=== PATIENT | male | born 1980 | race Two or more races ===

== ENCOUNTER 2025-03-17 17:53 | Inpatient (IN) | payer OTHER ==
[~2025-03-17] VITALS: Ht 180.3 cm; Wt 113.4 kg
--- NOTE | 2025-03-17 18:33 | ED.PDOC ---
History of Present Illness HPI Comments 44 y/o M, with a history of DM, HTN, and left-ankle surgery, presents with c/o left-foot pain, headache, and fatigue, today. Patient is deaf and a ASL speaker and endorses on recent onset of worsening symptoms after sustaining a scratch from a dog 1x week ago. Patient reports on pain worse when bearing weight and ambulating on foot. He any fever, chills, wound discharge, or other associated symptoms at this time. Time Seen by MD: 18:00 Reviewed Notes: Nurses Notes, Medications, Allergies Allergies: Coded Allergies: NO KNOWN ALLERGIES (Unverified , 03/17/25) Information Source: Patient Mode of Arrival: Ambulatory Severity: Moderate Timing: Weeks Duration: Since onset Prehospital treatment: None Past Medical History PAST MEDICAL HISTORY: DM, HTN Past Medical History (Other): deaf - ASL speaker Surgical History (Other): left-ankle surgery Family History Family History: Unknown Social History Smoker: Non-Smoker Alcohol: Denies ETOH Use Drugs: Denies Drug Use Lives In: Home Constitutional: reports: fatigue; denies: chills, diaphoresis, fever, malaise, sweats, weakness, others EENTM: denies: blurred vision, double vision, ear bleeding, ear discharge, ear drainage, ear pain, ear ringing, eye pain, eye redness, hearing loss, mouth pain, mouth swelling, nasal discharge, nose bleeding, nose congestion, nose pain, photophobia, tearing, throat pain, throat swelling, voice changes, others Respiratory: denies: cough, hemoptysis, orthopnea, SOB at rest, shortness of breath, SOB with excertion, stridor, wheezing, others Cardiovascular: denies: chest pain, dizzy spells, diaphoresis, Dyspnea on exertion, edema, irregular heart beat, left arm pain, lightheadedness, palpitations, PND, syncope, others Gastrointestinal: denies: abdomen distended, abdominal pain, blood streaked bowels, constipated, diarrhea, dysphagia, difficulty swallowing, hematemesis, melena, nausea, poor appetite, poor fluid intake, rectal bleeding, rectal pain, vomiting, others Genitourinary: denies: burning, dysuria, flank pain, frequency, hematuria, inco ntinence, penile discharge, penile sore, pain, testicle pain, testicle swelling, urgency, others Neurological: reports: headache; denies: dizziness, fainting, left sided numbness, left sided weakness, numbness, paresthesia, pre-existing deficit, right sided numbness, right sided weakness, seizure, speech problems, tingling, tremors, weakness, others Musculoskeletal: reports: others (left foot pain ); denies: back pain, gout, joint pain, joint swelling, muscle pain, muscle stiffness, neck pain Integumetry: denies: bruises, change in color, change in hair/nails, dryness, laceration, lesions, lumps, rash, wounds, others Allergic/Immunocompromised: denies: Difficulty Healing, Frequent Infections, Hives, Itching, others Hematologic/Lymphatic: denies: anemia, blood clots, easy bleeding, easy bruising, swollen glands, others Endocrine: denies: excessive hunger, excessive sweating, excessive thirst, excessive urination, flushing, intolerance to cold, intolerance to heat, unexplained weight gain, unexplained weight loss, others Psychiatric: denies: anxiety, bipolar disorder, depression, hopeless, panic disorder, schizophrenia, sleepless, suicidal, others All Other Systems: Reviewed and Negative Physical Exam General Appearance: Mild Distress HEENT: Normal ENT Inspection, Pharynx Normal, TMs Normal Neck: Full Range of Motion, Non-Tender, Normal, Normal Inspection Respiratory: Chest Non-Tender, Lungs Clear, No Accessory Muscle Use, No Respiratory Distress, Normal Breath Sounds Cardiovascular: No Edema, No JVD, No Murmur, No Gallop, Normal Peripheral Pulses, Regular Rate/Rhythm Breast Exam: Deferred Gastrointestinal: No Organomegaly, Non Tender, No Pulsatile Mass, Normal Bowel Sounds, Soft Genitalia: Deferred Pelvic: Deferred Rectal: Deferred Extremities: No calf tenderness, Normal capillary refill, Non-tender Musculoskeletal : Apperance: Normal Neurologic: Alert, cattle brander II-XII nml as Tested, No Motor Deficits, Normal Affect, Normal Mood, No Sensory Deficits Cerebellar Function: Normal Reflexes: Normal Skin: Dry, Normal Color, Warm, Other (Left ankle redness consistent with cellu litis) Lymphatic: No Adenopathy Was a procedure done? Was a procedure done?: No Differential Dx Considerations may include: cellulitis, dermatitis, sepsis, among others X-Ray, Labs, Meds, VS Vital Signs Date Time Temp Pulse Resp B/P (MAP) Pulse Ox O2 Delivery O2 Flow Rate FiO2 03/17/25 18:27 98.6 97 18 141/94 (110) 98 98.6 Lab Test 03/17/25 19:03 Range/Units White Blood Count 4.9 4.4-10.8 10^3/uL Red Blood Count 5.06 4.5-5.90 10^6/uL Hemoglobin 15.4 13.5-17.5 g/dL Hematocrit 43.7 41.0-53.0 % Mean Corpuscular Volume 86.3 80.0-100.0 fL Mean Corpuscular Hemoglobin 30.3 28.0-32.0 pg Mean Corpuscular Hemoglobin Concent 35.2 32.0-36.0 g/dL Red Cell Distribution Width 12.5 11.8-14.3 % Platelet Count 272 140-450 10^3/uL Mean Platelet Volume 8.2 6.9-10.8 fL Neutrophils (%) (Auto) 43.0 37.0-80.0 % Lymphocytes (%) (Auto) 50.5 H 10.0-50.0 % Monocytes (%) (Auto) 4.1 0.0-12.0 % Eosinophils (%) (Auto) 1.5 0.0-7.0 % Basophils (%) (Auto) 0.9 0.0-2.0 % Neutrophils # (Auto) 2.1 1.6-8.6 10 ^3/uL Lymphocytes # (Auto) 2.5 0.4-5.4 10 ^3/uL Monocytes # (Auto) 0.2 0-1.3 10 ^3/uL Eosinophils # (Auto) 0.1 0-0.8 10 ^3/uL Basophils # (Auto) 0 0-0.2 10 ^3/uL Nucleated Red Blood Cells 0.2 % Erythrocyte Sedimentation Rate 20 0-20 mm/hr Sodium Level 137 136-145 mmol/L Potassium Level 4.2 3.5-5.1 mmol/L Chloride Level 102 98-107 mmol/L Carbon Dioxide Level 29 20-31 mmol/L Anion Gap 6 5-15 Blood Urea Nitrogen 12 9-23 mg/dL Creatinine 0.95 0.700-1.30 mg/dL Glomerular Filtration Rate Calc 101 >90 mL/min BUN/Creatinine Ratio 12.6 10.0-20.0 Serum Glucose 153 H 74-106 mg/dL Calcium Level 10.1 8.7-10.4 mg/dL PROCEDURE(s): LFOT2 - L FOOT 2 VIEW XRAY VIEW XRAY Findings/Impression: 3 views of the left foot. There is no evidence of an acute fracture, dislocation, osseous erosions, blastic, or lytic lesions. No radiopaque foreign bodies. No joint effusion or superficial soft tissue abnormalities. IV Hep-Lock was established The patient was being given clindamycin IV piggyback The CBC and chemistry panel is within normal limits The patient is being admitted at this time Images Reviewed?: Images reviewed and evaluated by me Time of 1ST Reevaluation: 18:30 Reevaluation 1ST: Unchanged Patient Education/Counseling: Diagnosis, Treatment, Prognosis, Need For Follow Up Family Education/Counseling: No Family Present Departure 1 Departure Time of Disposition: 20:39 Impression: Primary Impression: Cellulitis of left ankle Disposition: ADMITTED INPATIENT Admit to: Med Surg Condition: Fair Critical Care Note Critical Care Time?: No Stability Stability form required: Yes Unstable for transfer: ED Physician Assesment (Clinical assesment) Heart Score Heart Score: Heart Score Response (Comments) Value History N/A 0 EKG N/A 0 Age N/A 0 Risk Factors N/A 0 Troponin N/A 0 Total 0 I personally scribed for HERNANDEZ HEIN MD ([email or web address]) on 03/17/25 at 18:33. Electronically submitted by Jeremy Abebe ([email or web address]). I personally scribed for HERNANDEZ HEIN MD ([email or web address]) on 03/17/25 at 19:45. Electronically submitted by Jeremy Abebe ([email or web address]). HERNANDEZ HEIN MD Mar 17, 2025 18:33
[2025-03-17 19:16] LABS: Basophils # (auto) 0 10 ^3/uL (0-0.2); Basophils % (auto) 0.9 % (0.0-2.0); Eosinophils # (auto) 0.1 10 ^3/uL (0-0.8); Eosinophils % (auto) 1.5 % (0.0-7.0); Hematocrit 43.7 % (41.0-53.0); Hemoglobin 15.4 g/dL (13.5-17.5); Lymphocytes # (auto) 2.5 10 ^3/uL (0.4-5.4); Lymphocytes % (auto) 50.5 % (10.0-50.0); Mean Corpuscular Hemoglobin 30.3 pg (28.0-32.0); Mean Corpuscular Hgb Conc. 35.2 g/dL (32.0-36.0); Mean Corpuscular Volume 86.3 fL (80.0-100.0); Monocytes # (auto) 0.2 10 ^3/uL (0-1.3); Monocytes % (auto) 4.1 % (0.0-12.0); Neutrophils # (auto) 2.1 10 ^3/uL (1.6-8.6); Nucleated Red Blood Cells % 0.2 %; Platelet Count (auto) 272 10^3/uL (140-450); Red Blood Cells 5.06 10^6/uL (4.5-5.90); Red Cell Distribution Width 12.5 % (11.8-14.3); White Blood Cell 4.9 10^3/uL (4.4-10.8)
[2025-03-17 19:29] LABS: Chloride 102 mmol/L (98-107); Potassium 4.2 mmol/L (3.5-5.1); Sodium 137 mmol/L (136-145)
[2025-03-17 19:30] LABS: Anion Gap 6 (5-15); Carbon Dioxide 29 mmol/L (20-31)
[2025-03-17 19:31] LABS: Calcium 10.1 mg/dL (8.7-10.4)
--- NOTE | 2025-03-17 19:31 | DVH ---
EXAM: XY L FOOT 2 VIEW XRAY CLINICAL HISTORY: infection COMPARISON: None TECHNIQUE: XY L FOOT 2 VIEW XRAY Findings/Impression: 3 views of the left foot. There is no evidence of an acute fracture, dislocation, osseous erosions, blastic, or lytic lesions. No radiopaque foreign bodies. No joint effusion or superficial soft tissue abnormalities.
[2025-03-17 19:36] LABS: BUN/Creatinine Ratio 12.6 (10.0-20.0); Blood Urea Nitrogen 12 mg/dL (9-23)
[2025-03-17 19:38] LABS: Glucose 153 mg/dL (74-106)
[2025-03-17 20:05] LABS: Erythrocyte Sedimentation Rate 20 mm/hr (0-20)
[2025-03-17] MEDS ORDERED: DEXTROSE (50%) 50ML SYRG IV PRN (21:30)
[2025-03-17] MEDS ORDERED: ONDANSETRON HCL 4 MG/2 ML VIAL IV PRN (21:30)
[2025-03-17] MEDS ORDERED: ACETAMINOPHEN 325 MG TAB PO PRN (21:30)
[2025-03-17 22:28] VITALS: PULSE 89; RESP 17; O2SAT 97
[2025-03-17] MEDS: InsuLIN REG 1unit/0.01ml Soln (100units/ml) SC SCH (23:08)
[2025-03-17] MEDS: ATORVASTATIN 20 MG TAB PO SCH (23:08)
[2025-03-17] MEDS: ACCU-CHEK COMFORT CURVE STRIP VI SCH (23:08)
[2025-03-17] MEDS: CLINDAMYCIN 600MG IV 50 ML IV ONE (23:09)
[2025-03-18] VITALS (8 sets, daily range): BP systolic 114–144; BP diastolic 76–89; PULSE 71–89; RESP 16–18; TEMP 97.6–98.2; O2SAT 95–99
--- NOTE | 2025-03-18 03:20 | DVHHP2 ---
History of Present Illness Reason for Visit: Ankle redness History of Present Illness 44-year-old male presents for evaluation of possible infection to left ankle. The patient reports sustaining a scratched by a dog paroxysmal week ago. He reports swelling to the left ankle with tenderness. Patient denies fever or chills. No open wound noted. No other acute complaints. Past Medical History Hypertension, diabetes mellitus, deaf/mute Past Surgical History Left ankle surgery Family History Noncontributory Smoke: No ALCOHOL: none Drugs: None Lives: with Family Review of Systems Review of Systems Review of systems are currently negative otherwise addressed in HPI. Allergies: Coded Allergies: NO KNOWN ALLERGIES (Unverified , 03/17/25) Medications Current Medications Medications Dose Ordered Sig/Dash Route Start Time Stop Time Status Last Admin Dose Admin Atorvastatin Calcium 10 mg HS PO 03/17/25 22:00 03/17/25 23:08 10 MG Diagnostic Test (Pha) 1 strip ACHS 03/17/25 22:00 03/17/25 23:08 1 STRIP Insulin Human Regular ACHS SC 03/17/25 22:00 03/17/25 23:08 3 UNITS Dextrose 50 ml UD PRN IV 03/17/25 21:30 Acetaminophen/ Hydrocodone Bitart 1 tab Q4HP PRN PO 03/17/25 21:30 Ondansetron HCl 4 mg Q4HP PRN IV 03/17/25 21:30 Acetaminophen 650 mg Q6HP PRN PO 03/17/25 21:30 Exam Vital Signs Vital Signs Date Time Temp Pulse Resp B/P (MAP) Pulse Ox O2 Delivery O2 Flow Rate FiO2 03/18/25 00:10 82 18 97 Room Air* 0 21 03/18/25 00:10 98.1 143/89 (107) 98.1 Exam Gen: 44-year-old male in no apparent distress Skin: Warm, dry, normal color and texture, no rash. HEENT: Normocephalic atraumatic, mucous membranes moist and pink. Neck: Cervical and supraclavicular nodes normal without enlargement, trachea is midline, thyroid gland is normal without masses. Pulmonary: Clear to auscultation and percussion bilaterally. Cardiac: Regular rate and rhythm. No murmur Abdomen: Soft, nontender, nondistended, bowel sounds present all 4 quadrants, no guarding, no rigidity, no organomegaly. Extremities: No cyanosis, clubbing, left ankle with mild edema/erythema and tenderness Neuro: Cranial nerves II through XII grossly intact, normal affect and speech, no focal motor deficits. Labs/Xrays ORDERING PHYSICIAN: HERNANDEZ HEIN MD PROCEDURE(s): LFOT2 - L FOOT 2 VIEW XRAY REASON: infection ORDER NUMBER(s): [id number], ACCESSION NUMBER(s): [id number] EXAM: XY L FOOT 2 VIEW XRAY CLINICAL HISTORY: infection COMPARISON: None TECHNIQUE: XY L FOOT 2 VIEW XRAY Findings/Impression: 3 views of the left foot. There is no evidence of an acute fracture, dislocation, osseous erosions, blastic, or lytic lesions. No radiopaque foreign bodies. No joint effusion or superficial soft tissue abnormalities. Labs Test 03/17/25 22:55 03/17/25 19:03 Range/Units POC Glucose 173 H 70-106 mg/dl White Blood Count 4.9 4.4-10.8 10^3/uL Red Blood Count 5.06 4.5-5.90 10^6/uL Hemoglobin 15.4 13.5-17.5 g/dL Hematocrit 43.7 41.0-53.0 % Mean Corpuscular Volume 86.3 80.0-100.0 fL Mean Corpuscular Hemoglobin 30.3 28.0-32.0 pg Mean Corpuscular Hemoglobin Concent 35.2 32.0-36.0 g/dL Red Cell Distribution Width 12.5 11.8-14.3 % Platelet Count 272 140-450 10^3/uL Mean Platelet Volume 8.2 6.9-10.8 fL Neutrophils (%) (Auto) 43.0 37.0-80.0 % Lymphocytes (%) (Auto) 50.5 H 10.0-50.0 % Monocytes (%) (Auto) 4.1 0.0-12.0 % Eosinophils (%) (Auto) 1.5 0.0-7.0 % Basophils (%) (Auto) 0.9 0.0-2.0 % Neutrophils # (Auto) 2.1 1.6-8.6 10 ^3/uL Lymphocytes # (Auto) 2.5 0.4-5.4 10 ^3/uL Monocytes # (Auto) 0.2 0-1.3 10 ^3/uL Eosinophils # (Auto) 0.1 0-0.8 10 ^3/uL Basophils # (Auto) 0 0-0.2 10 ^3/uL Nucleated Red Blood Cells 0.2 % Erythrocyte Sedimentation Rate 20 0-20 mm/hr Sodium Level 137 136-145 mmol/L Potassium Level 4.2 3.5-5.1 mmol/L Chloride Level 102 98-107 mmol/L Carbon Dioxide Level 29 20-31 mmol/L Anion Gap 6 5-15 Blood Urea Nitrogen 12 9-23 mg/dL Creatinine 0.95 0.700-1.30 mg/dL Glomerular Filtration Rate Calc 101 >90 mL/min BUN/Creatinine Ratio 12.6 10.0-20.0 Serum Glucose 153 H 74-106 mg/dL Calcium Level 10.1 8.7-10.4 mg/dL Assessment/Plan Assessment/Plan Assessment Left ankle cellulitis Diabetes mellitus Hypertension Plan Admit the patient to [facility] to the hospitalist Clindamycin Resume home medications Continue treatment per orders. Plan discussed with: Patient My Orders Orders - ANGELA BRIGHT Procedure Category Date Status Time Consistent DIET 03/18/25 Transmitted Carb(Ccho)Diabetes Breakfast Blood Culture AKIRA 03/17/25 In Process 21:26 Atorvastatin (Lipitor) PHA 03/17/25 In Process 22:00 Basic Metabolic Panel LAB 03/18/25 Logged 04:00 Glucose Blood PHA 03/17/25 In Process (Accu-Chek Comfort 22:00 Insulin R (Human) PHA 03/17/25 In Process (Insulin R) 22:00 Dextrose 50% Syringe PHA 03/17/25 In Process 21:30 Admit ADMIT 03/17/25 Transmitted 21:26 Hydrocodone-Acet PHA 03/17/25 In Process 5/325mg Tab ([place] 21:30 Ondansetron Hcl PHA 03/17/25 In Process (Zofran) 21:30 Complete Blood Count LAB 03/18/25 Logged 04:00 Cardiac DIET 03/18/25 Transmitted Diet-2gna,Lofat,Lochol Breakfast Condition: Stable YUNIOR 03/17/25 In Process 21:26 Acetaminophen Tablet PHA 03/17/25 In Process (Tylenol Tablet) 21:30 Bedrest With Bathroom YUNIOR 03/17/25 In Process Privileg 21:26 * Building Insulation Installer CONS 03/18/25 Transmitted Consult 01:10 * Wound Consult CONS 03/18/25 Transmitted Clindamycin Ivpb PHA 03/18/25 Verified [place] 06:00 Date of Service: Mar 17, 2025 Billing Provider: ANGELA BRIGHT Common Visit Codes: [id number] INP/OBS CARE (MOD) ANGELA BRIGHT Mar 18, 2025 03:20
[2025-03-18 05:00] LABS: Hematocrit 41.7 % (41.0-53.0); Hemoglobin 14.5 g/dL (13.5-17.5); Mean Corpuscular Hemoglobin 30.2 pg (28.0-32.0); Mean Corpuscular Hgb Conc. 34.8 g/dL (32.0-36.0); Mean Corpuscular Volume 86.8 fL (80.0-100.0); Platelet Count (auto) 247 10^3/uL (140-450); Red Cell Distribution Width 12.9 % (11.8-14.3); White Blood Cell 4.5 10^3/uL (4.4-10.8)
[2025-03-18 05:08] LABS: Band Neutrophils % (manual) 0; Basophils % (manual) 0 (0.0-2.0); Blast Cells 0; Eosinophils % (manual) 0 (0-7); Metamyelocytes % 0; Myelocytes % 0; Promyelocytes % 0
[2025-03-18 05:17] LABS: Chloride 103 mmol/L (98-107); Potassium 3.6 mmol/L (3.5-5.1); Sodium 137 mmol/L (136-145)
[2025-03-18 05:18] LABS: Anion Gap 5 (5-15); Calcium 9.8 mg/dL (8.7-10.4); Carbon Dioxide 29 mmol/L (20-31)
[2025-03-18] MEDS: CLINDAMYCIN 600MG IV 50 ML IV SCH (05:20)
[2025-03-18 05:23] LABS: BUN/Creatinine Ratio 14.4 (10.0-20.0); Blood Urea Nitrogen 13 mg/dL (9-23)
[2025-03-18 05:25] LABS: Glucose 180 mg/dL (74-106)
[2025-03-18 05:30] LABS: Lymphocytes % (manual) 56 (10.0-50.0); Monocytes % (manual) 10 (0-12); Platelet Estimate Adequate; Reactive Lymphocytes 5
[2025-03-18] MEDS: HYDROcodone-ACET 5/325MG TAB PO PRN (13:08)
--- NOTE | 2025-03-18 15:45 | DVHPN2 ---
Subjective PATIENT CONTINUES TO COMPLAIN OF LEFT ANKLE PAIN Reviewed: Care Plan, H&P, Labs Changes from previous H/P or p: No Changes General: Per HPI Objective Vitals Vital Signs Date Time Temp Pulse Resp B/P (MAP) Pulse Ox O2 Delivery O2 Flow Rate FiO2 03/18/25 12:00 98.2 77 18 134/86 (102) 97 98.2 03/18/25 00:10 Room Air* 0 21 Intake/Output Intake and Output 03/18/25 07:00 Intake Total 100 ml Balance 100 ml Intake Oral 100 ml # Voids 2 General Appearance: Alert, Oriented X3, Cooperative HEENT: Atraumatic, PERRLA Cardiovascular: Normal S1, Normal S2 Abdomen: Normal bowel sounds, Soft, No tenderness Musculoskeletal: Normal sensory function, Normal motor function Neuro: Normal gait, Normal speech Skin: Dry, Intact Psych/Mental Status: Mental status NL, Mood NL Medications Current Medications Medications Dose Ordered Sig/Dash Route Start Time Stop Time Status Last Admin Dose Admin Atorvastatin Calcium 10 mg HS PO 03/17/25 22:00 03/17/25 23:08 10 MG Diagnostic Test (Pha) 1 strip ACHS 03/17/25 22:00 03/18/25 11:50 1 STRIP Insulin Human Regular ACHS SC 03/17/25 22:00 03/18/25 12:01 3 UNITS Dextrose 50 ml UD PRN IV 03/17/25 21:30 Acetaminophen/ Hydrocodone Bitart 1 tab Q4HP PRN PO 03/17/25 21:30 03/18/25 13:08 1 TAB Ondansetron HCl 4 mg Q4HP PRN IV 03/17/25 21:30 Acetaminophen 650 mg Q6HP PRN PO 03/17/25 21:30 Clindamycin Phosphate 50 ml @ 50 mls/hr Q8HR IV 03/18/25 06:00 03/18/25 14:56 50 MLS/HR Laboratory Results Laboratory Tests 03/18/25 04:25 Chemistry Test 03/17/25 19:03 03/18/25 04:25 Calcium Level 10.1 mg/dL (8.7-10.4) 9.8 mg/dL (8.7-10.4) Labs and/or images reviewed: Labs reviewed by me, Image(s) reviewed by me Assessment/Plan Assessment/Plan Impression: -left ankle pain/cellulitis -history of left ankle fracture -obesity -hearing impaired -primary hypertension -diabetes mellitus Plan: -left ankle continues to be painful and swollen. -CT scan of the left ankle in -regular insulin sliding scale -antihypertensives -continue antibiotic therapy Total time spent with patient discussing and formulating plan of care: 35 minutes. This medical document was created using an electronic medical record system with [employer] dictation system. Although this document has been carefully reviewed, there may still be some phonetic and typographical errors. These areas are purely typographical due to imperfections of the software programs, and do not reflect any compromise in the patient's medical care. Plan discussed with: Patient, Other (RN) My Orders Orders - ALESHA BEYER NP Procedure Category Date Status Time Ct L Ankle Wo Contrast CT 03/18/25 Transmitted 15:39 Date of Service: Mar 18, 2025 Billing Provider: ALESHA BEYER NP Common Visit Codes: [id number] INP/OBS CARE(HIGH) ALESHA BEYER NP Mar 18, 2025 15:45
[2025-03-18] MEDS: amLODIPine BESYLATE 5 MG TAB PO ONE (17:11)
--- NOTE | 2025-03-18 20:37 | DVH ---
EXAM: CT CT L ANKLE WO CONTRAST INDICATION: SWELLING, ABSCESS EXAM DATE: 03/18/2025 03:52 PM COMPARISON: None TECHNIQUE: Multiple axial CT images of the left ankle were obtained using bone algorithm. Axial and c oronal reformatting was done. Bone and soft tissue windows were reviewed. Radiation Dose Information: CT Dose: CTDI volume is 7.75 mGy. Dose-length product is 233.23 mGy*cm Findings/Impression: Limited evaluation given noncontrast technique. There is no evidence of an acute fracture, dislocation, blastic, or lytic lesions. Orthopedic screws in the distal tibia. Scattered surgical clips. Osteopenia. Mild soft tissue edema. No focal fluid collections or subcutaneous emphysema. If there is high clinical suspicion for an infectious etiology, recommend a nuclear medicine WBC scan for further evaluation.
[2025-03-19] VITALS (7 sets, daily range): BP systolic 106–138; BP diastolic 50–88; PULSE 70–74; RESP 16–19; TEMP 36.9; O2SAT 96–97
[2025-03-19] MEDS ORDERED: AMOX500T86 PO (15:42)
[2025-03-19] MEDS ORDERED: DICL75TA3 PO (15:42)
--- NOTE | 2025-03-19 15:45 | DVHDS2 ---
Discharge Summary Date of Admission Mar 17, 2025 at 21:26 Date of Discharge: Mar 19, 2025 Admitting Diagnosis Cellulitis to left ankle Labs/Diagnostic Data: Laboratory Results Test 03/19/25 11:12 03/18/25 04:25 03/17/25 19:03 POC Glucose 212 mg/dl (70-106) White Blood Count 4.5 10^3/uL (4.4-10.8) Red Blood Count 4.80 10^6/uL (4.5-5.90) Hemoglobin 14.5 g/dL (13.5-17.5) Hematocrit 41.7 % (41.0-53.0) Mean Corpuscular Volume 86.8 fL (80.0-100.0) Mean Corpuscular Hemoglobin 30.2 pg (28.0-32.0) Mean Corpuscular Hemoglobin Concent 34.8 g/dL (32.0-36.0) Red Cell Distribution Width 12.9 % (11.8-14.3) Platelet Count 247 10^3/uL (140-450) Mean Platelet Volume 8.3 fL (6.9-10.8) Neutrophils (%) (Auto) % (37.0-80.0) Lymphocytes (%) (Auto) % (10.0-50.0) Monocytes (%) (Auto) % (0.0-12.0) Basophils (%) (Auto) % (0.0-2.0) Neutrophils # (Auto) 10 ^3/uL (1.6-8.6) Lymphocytes # (Auto) 10 ^3/uL (0.4-5.4) Monocytes # (Auto) 10 ^3/uL (0-1.3) Differential Total Cells Counted 100.0 (100) Neutrophils % (Manual) 29 (37.0-80.0) Band Neutrophils % (Manual) 0 Lymphocytes % (Manual) 56 (10.0-50.0) Monocytes % (Manual) 10 (0-12) Eosinophils % (Manual) 0 (0-7) Basophils % (Manual) 0 (0.0-2.0) Metamyelocytes % (manual) 0 Myelocytes % (Manual) 0 Promyelocytes % (Manual) 0 Blast Cells % (Manual) 0 Reactive Lymphocytes 5 Platelet Estimate Adequate Sodium Level 137 mmol/L (136-145) Potassium Level 3.6 mmol/L (3.5-5.1) Chloride Level 103 mmol/L (98-107) Carbon Dioxide Level 29 mmol/L (20-31) Anion Gap 5 (5-15) Blood Urea Nitrogen 13 mg/dL (9-23) Creatinine 0.90 mg/dL (0.700-1.30) Glomerular Filtration Rate Calc 107 mL/min (>90) BUN/Creatinine Ratio 14.4 (10.0-20.0) Serum Glucose 180 mg/dL (74-106) Calcium Level 9.8 mg/dL (8.7-10.4) Eosinophils (%) (Auto) 1.5 % (0.0-7.0) Eosinophils # (Auto) 0.1 10 ^3/uL (0-0.8) Basophils # (Auto) 0 10 ^3/uL (0-0.2) Nucleated Red Blood Cells 0.2 % Erythrocyte Sedimentation Rate 20 mm/hr (0-20) Other Laboratory Tests 03/18/25 04:25 Brief Hx & Hospital Course: History of Present Illness 44-year-old male presents for evaluation of possible infection to left ankle. The patient reports sustaining a scratched by a dog paroxysmal week ago. He reports swelling to the left ankle with tenderness. Patient denies fever or chills. No open wound noted. No other acute complaints. Course of hospitalization: Patient was started on IV antibiotic therapy. Patient had no leukocytosis, as well as being afebrile. CT scan was performed of the left ankle given previous history of fracture with internal fixation. No signs of abscess or infection was noted. Patient was then focused on pain to the outer portion of his foot, with open callus/corn appreciated. Long discussion was made with the patient regarding plan of care which includes wearing appropriate fitting shoes, wound care with a topical dressing to his lateral aspect of his foot, as well as continued antibiotic therapy with oral antibiotics as well as pain medication with diclofenac. Patient will be discharged home as instructed to follow up with his PCP in 1-2 weeks. Physical examination General: Alert and Oriented x3. No acute distress. Well-nourished. Eyes: EOMI. Anicteric. HENT: Moist mucous membranes. Lungs: Clear to auscultation bilaterally. No accessory muscle use. Cardiovascular: Regular rate and rhythm. No murmur. No JVD. Abdomen: Soft, non-tender and non-distended. No palpable masses. Extremities: No edema. Non-tender. Skin: No rashes or lesions. Warm. Neurologic: No focal neurological deficits. CN II-XII grossly intact, but not individually tested. Psychiatric: Cooperative. Appropriate mood and affect. Total time spent with patient discussing and formulating plan of care: 35 minutes. This medical document was created using an electronic medical record system with [place] dictation system. Although this document has been carefully reviewed, there may still be some phonetic and typographical errors. These areas are purely typographical due to imperfections of the software programs, and do not reflect any compromise in the patient's medical care. Condition at Discharge: Fair Final Diagnosis/Problems List Cellulitis to left ankle and anterior tibialis failure Discharge Disposition: Home Discharge Instruct/Medications Diet: Consistent carbohydrate Activity: No Restrictions, As Tolerated Follow Up/Referral: Follow up with PCP in 1-2 weeks Discharge Clinic in one week Medications: Diclofenac 75 mg p.o. twice a day as needed for [id number] pain Augmentin 500 mg p.o. twice a day x4 days 36 Discharge Statement: "Patient was advised to return to the ER or call 911 if any headaches, dizziness, shortness of breath, chest pain, abdominal pain, bleeding, fevers, or worsening of medical condition. Patient was counseled about treatment plan, medications, possible side effects, patientverbalized understanding. All questions were answered to the best of my ability. This discharge took greater then 30 minutes in planning, reviewing documentation, counseling the patient, and discussing with other team members." ASSESSMENT ASSESSMENT Assessment Cellulitis to left ankle and anterior tibialis failure Date of Service: Mar 19, 2025 Billing Provider: ALESHA BEYER NP Common Visit Codes: [id number]/OBS DISCH DAY >30min ALESHA BEYER NP Mar 19, 2025 15:45
== END 2025-03-19 18:26 | disposition home or self-care (01) | DRG 603 ==
LOC: ER 17:53 → OVERFLOW 21:26 → WEST WING 03-18 17:33
PROVIDERS: ADMIT Nurse Practitioner Acute Care; ATTEND Nurse Practitioner Acute Care
DX: L03.116 Cellulitis of left lower limb (principal); Z68.45 Body mass index [BMI] 70 or greater, adult; E11.9 Type 2 diabetes mellitus without complications; I10 Essential (primary) hypertension; E66.9 Obesity, unspecified; H91.3 Deaf nonspeaking, not elsewhere classified; Z79.899 Other long term (current) drug therapy
CPT/HCPCS: 36415; 73620; 73700; 80048; 82962; 85007; 85025; 85027; 85652; 87040; G0378; J1815; J3490